=== PATIENT | female | born 1955 | race Two or more races ===

== ENCOUNTER 2016-06-24 17:59 | Emergency (ER) | payer SELFPAY ==
--- NOTE | 2016-06-24 18:09 | ER Document Report ---
ED Medical Screen (RME) - General Chief Complaint: Cough Stated Complaint: RESPIRATORY PROBLEM Time seen by provider: 18:07 Mode of Arrival: Ambulatory Information source: Patient Notes: 60 yo female presents to ed for cough and sore throat for 3 days. TRAVEL OUTSIDE OF THE [place] IN LAST 30 DAYS: No - HPI Onset: Other - 3 days Onset/Duration: Gradual Quality of pain: Other - sore throat Severity: Moderate Pain Level: 4 Associated Symptoms: Cough (nonproductive), Sinus pain/drainage, Sore throat Exacerbated by: Coughing Relieved by: Denies Similar symptoms previously: Yes Recently seen / treated by doctor: No - Related Data Smoking: Non-smoker, Quit greater than 1 year Frequency of alcohol use: Social Drug Abuse: None Allergies/Adverse Reactions: ibuprofen [Ibuprofen] Allergy (Verified 06/04/11 14:30) Past Medical History - Past Medical History Cardiac Medical History: Reports: Hx Hypertension Pulmonary Medical History: Reports: Hx Asthma - Immunizations Hx Diphtheria, Pertussis, Tetanus Vaccination: Yes
--- NOTE | 2016-06-24 19:35 | ER Document Report ---
ED General - General Chief Complaint: Cough Stated Complaint: RESPIRATORY PROBLEM Mode of Arrival: Ambulatory Notes: Patient is a 60-year-old female without significant past medical history who presents with 3 days of cough, sore throat, sinus pressure, and generalized malaise. Multiple sick contacts with similar symptoms. She does describe a constant, dull, scratchy pain to her throat. States she's had similar symptoms in the past with upper respiratory viral infections. She has been trying Mucinex at home with minimal relief of her symptoms. She has not noted anything worsens or symptoms. She has not seen her primary care physician regarding today's concerns. Denies any associated hemoptysis, shortness of breath, neck pain, headache, or altered mental status. TRAVEL OUTSIDE OF THE [place] IN LAST 30 DAYS: No - Related Data Allergies/Adverse Reactions: ibuprofen [Ibuprofen] Allergy (Verified 06/24/16 18:07) Past Medical History - General Information source: Patient - Social History Smoking Status: Never Smoker Chew tobacco use (# tins/day): No Frequency of alcohol use: Social Drug Abuse: None Lives with: Spouse/Significant other Family History: Reviewed & Not Pertinent Patient has suicidal ideation: No - Past Medical History Cardiac Medical History: Reports: Hx Hypertension Pulmonary Medical History: Reports: Hx Asthma Surgical Hx: Negative - Immunizations Hx Diphtheria, Pertussis, Tetanus Vaccination: Yes Review of Systems - Review of Systems Notes: Constitutional: Negative for fever. HENT: Positive for sore throat. Eyes: Negative for visual changes. Cardiovascular: Negative for chest pain. Respiratory: Negative for shortness of breath. Positive for cough Gastrointestinal: Negative for abdominal pain, vomiting or diarrhea. Genitourinary: Negative for dysuria. Musculoskeletal: Negative for back pain. Skin: Negative for rash. Neurological: Negative for headaches, weakness or numbness. 10 point ROS negative except as marked above and in HPI. Physical Exam - Vital signs Vitals: Resp 18 06/24/16 19:19 Interpretation: Normal Notes: PHYSICAL EXAMINATION: GENERAL: Well-appearing, well-nourished and in no acute distress. HEAD: Atraumatic, normocephalic. EYES: Pupils equal round and reactive to light, extraocular movements intact, sclera anicteric, conjunctiva are normal. ENT: nares patent, oropharynx clear without exudates. Moist mucous membranes. NECK: Normal range of motion, supple without lymphadenopathy LUNGS: Breath sounds clear to auscultation bilaterally and equal. No wheezes rales or rhonchi. HEART: Regular rate and rhythm without murmurs ABDOMEN: Soft, nontender, normoactive bowel sounds. No guarding, no rebound. No masses appreciated. EXTREMITIES: Normal range of motion, no pitting or edema. No cyanosis. NEUROLOGICAL: No focal neurological deficits. Moves all extremities spontaneously and on command. PSYCH: Normal mood, normal affect. SKIN: Warm, Dry, normal turgor, no rashes or lesions noted. Course - Re-evaluation Re-evalutation: 06/25/16 01:08 Presentation is most consistent with a viral upper respiratory infection. Patient is overall well appearance, vitals within normal limits, well-hydrated. Patient denies any headache, neck pain, and has no evidence of meningismus on examination. Lungs are clear bilaterally. No evidence of respiratory distress. Based on clinical exam and history, I do not suspect an acute pneumonia, meningitis, strep pharyngitis, or an acute encephalitis. Chest x- ray obtained in triage does not show any acute pneumonia. No futher laboratory or imaging testing is indicated at this time. At this time will discharge with return precautions and follow-up recommendations. Verbal discharge instructions given a the bedside and opportunity for questions given. Medication warnings reviewed. Patient is in agreement with this plan and has verbalized understanding of return precautions and the need for primary care follow-up in the next 24-72 hours. - Vital Signs Vital signs: Temp Pulse Resp BP Pulse Ox 98.1 F 91 18 159/59 H 98 06/24/16 20:06 06/24/16 20:06 06/24/16 19:19 06/24/16 20:06 06/24/16 20:06 - Diagnostic Test Radiology reviewed: Image reviewed, Reports reviewed Radiology results interpreted by me: 06/25/16 01:09 Chest x-ray: No pneumothorax, or acute infiltrate Discharge - Discharge Clinical Impression: Upper respiratory infection Qualifiers: URI type: unspecified URI Qualified Code(s): J06.9 - Acute upper respiratory infection, unspecified Condition: Good Disposition: HOME, SELF-CARE Additional Instructions: Your symptoms are most likely due to a viral infection it should resolve over the next 7-14 days. You should take [id number] guanfacine per bottle instructions to help thin the mucus. For nasal congestion: I would recommend that you get [id number] oxymetazoline also known is afrin. Use only per bottle instructions and be sure to never use this for more than 3 days if you can develop severe rebound congestion. You may also use tylenol or ibuprofen as needed for aches and thorat discomfort. Please be sure to drink plenty of fluids and get rest. Return to the emergency department he began having difficulty breathing, chest pain, persistent vomiting, or any other symptoms that are concerning to you.
[2016-06-24 20:07] VITALS: BP 159/59
== END 2016-06-24 20:10 | disposition home or self-care (01) ==
LOC: ER 17:59
DX: J06.9 Acute upper respiratory infection, unspecified (principal); J45.909 Unspecified asthma, uncomplicated; R05 Cough; J02.9 Acute pharyngitis, unspecified; J34.89 Other specified disorders of nose and nasal sinuses; R53.81 Other malaise; I10 Essential (primary) hypertension; Z88.6 Allergy status to analgesic agent
CPT/HCPCS: 71020; 99283

== ENCOUNTER 2017-07-20 16:39 | Inpatient (IN) | payer SELFPAY ==
--- NOTE | 2017-07-20 17:18 | RADIOLOGY REPORT (SQ) ---
EXAM DESCRIPTION: CHEST SINGLE VIEW COMPLETED DATE/TIME: 07/20/2017 5:09 pm REASON FOR STUDY: bed 4 cp COMPARISON: 06/24/2016. EXAM PARAMETERS: NUMBER OF VIEWS: One view. TECHNIQUE: Single frontal radiographic view of the chest acquired. RADIATION DOSE: NA LIMITATIONS: None. FINDINGS: LUNGS AND PLEURA: No opacities, masses or pneumothorax. No pleural effusion. MEDIASTINUM AND HILAR STRUCTURES: No masses. Contour normal. HEART AND VASCULAR STRUCTURES: Heart normal in size. Normal vasculature. BONES: Dorsal spondylosis noted. HARDWARE: None in the chest. OTHER: No other significant finding. IMPRESSION: NO ACUTE DISEASE. TECHNICAL DOCUMENTATION: JOB ID: [id number] SC-69 2010 [employer]- All Rights Reserved
[2017-07-20 18:42] LABS: ABSOLUTE BASOPHILS # (AUTO) 0.1 10^3/uL (0.0-0.2); ABSOLUTE EOSINOPHILS # (AUTO) 0.3 10^3/uL (0.0-0.6); ABSOLUTE LYMPHOCYTES (AUTO) 2.9 10^3/uL (0.5-4.7); ABSOLUTE MONOCYTES (AUTO) 0.5 10^3/uL (0.1-1.4); ABSOLUTE NEUT (AUTO) 8.9 10^3/uL (1.7-8.2); BASOPHILS % (AUTO) 0.5 % (0-2); EOSINOPHILS % (AUTO) 2.1 % (0-6); HEMOGLOBIN 14.5 g/dL (12.0-15.5); LYMPHOCYTES % (AUTO) 22.7 % (13-45); MEAN CORPUSCULAR HEMOGLOBIN 30.4 pg (27.0-33.4); MEAN CORPUSCULAR HGB CONC 33.6 g/dL (32.0-36.0); MEAN CORPUSCULAR VOLUME 90 fl (80-97); MONOCYTES % (AUTO) 4.3 % (3-13); PLATELET COUNT 420 10^3/uL (150-450); RED BLOOD COUNT 4.76 10^6/uL (3.72-5.28); RED CELL DISTRIBUTION WIDTH 14.6 % (11.5-14.0); SEGMENTED NEUTROPHILS % (AUTO) 70.4 % (42-78); TOTAL CELLS COUNTED % (AUTO) 100 %; WHITE BLOOD COUNT 12.6 10^3/uL (4.0-10.5)
--- NOTE | 2017-07-20 18:48 | ER Document Report ---
ED General - General Chief Complaint: High Blood Pressure Stated Complaint: CHEST PAIN Time Seen by Provider: 07/20/17 18:23 Notes: Patient is here complaining of some pressure in her chest and her heart racing and feeling dizzy and lightheaded. She said that she had the flu last week with some respiratory symptoms. She was seen , 1 week ago, and had a positive flu test at a local urgent care. She was put on Tamiflu and some prednisone for her breathing. She did not like the effects of the prednisone and thinks it was causing her heart to race so she only took it for about 2-1/2 days with her last dose being Monday. She describes this pressure as worse with activity or movement and better if she lays down and relaxes. She has had some nausea but not vomiting. Still has some cough, but no significant congestion or runny nose. Has not had any fever. Had a light headache. Patient has a history of hypertension and hypothyroid. She was on medications for both of these conditions, but has not had any for years because she cannot afford to go to the doctor to get prescriptions. Has never been told she has any heart trouble. On EMS, patient was noted to have a blood pressure of 208/110. She was given aspirin, nitroglycerin sublingual twice. She told EMS that her symptoms been going on for the past week and that she was under a lot of stress. When the patient arrived in the emergency department, she had a blood pressure 160/100. Remaining vital signs were all normal. TRAVEL OUTSIDE OF THE [place] IN LAST 30 DAYS: No - Related Data Allergies/Adverse Reactions: ibuprofen [Ibuprofen] Allergy (Verified 06/24/16 18:07) Past Medical History - Social History Smoking Status: Unknown if Ever Smoked Cigarette use (# per day): No Family History: Reviewed & Not Pertinent Patient has suicidal ideation: No Patient has homicidal ideation: No - Past Medical History Cardiac Medical History: Reports: Hx Hypertension Pulmonary Medical History: Reports: Hx Asthma Endocrine Medical History: Reports: Hx Hypothyroidism. Denies: Hx Diabetes Mellitus Type 1, Hx Diabetes Mellitus Type 2 - Immunizations Hx Diphtheria, Pertussis, Tetanus Vaccination: Yes Review of Systems - Review of Systems Notes: REVIEW OF SYSTEMS: CONSTITUTIONAL : Denies fever. EENT: Denies eye, ear, nose or mouth or throat pain or other symptoms. CARDIOVASCULAR: See HPI. RESPIRATORY: Does have some cough with minimal phlegm production. GASTROINTESTINAL: Denies abdominal pain vomiting, or diarrhea. Has some nausea. GENITOURINARY: Denies difficulty or painful urinating, urinary frequency, blood in urine. MUSCULOSKELETAL: Denies back or neck pain. Denies joint pain or swelling. SKIN: Denies rash or skin lesions. NEUROLOGICAL: Denies LOC or altered mental status. Denies headache. Denies sensory loss or motor deficits. ALL OTHER SYSTEMS REVIEWED AND NEGATIVE. Physical Exam - Vital signs Vitals: BP 164/83 H 07/20/17 17:01 Interpretation: Normal, Hypertensive - Mild - Notes Notes: PHYSICAL EXAMINATION: GENERAL: Well-appearing, in no acute distress. Anxious. HEAD: Atraumatic, normocephalic. EYES: Pupils equal round and reactive to light, extraocular movements intact. ENT: oropharynx clear without exudates. Moist mucous membranes. NECK: Normal range of motion, supple. LUNGS: Breath sounds clear and equal bilaterally. HEART: Regular rate and rhythm without murmurs. No chest wall tenderness to press. ABDOMEN: Soft, nontender. No guarding or rebound. No masses. BACK: No tenderness throughout entire back. EXTREMITIES: Normal range of motion without pain. Negative Homans bilaterally. NEUROLOGICAL: Normal speech, normal gait. Normal sensory, motor, and reflex exams. Awake, alert, and oriented x3. Cranial nerves normal. PSYCH: Anxious. SKIN: Warm, dry, no rashes. Course - Re-evaluation Re-evalutation: 07/20/17 18:47 Blood pressure 140/82. Patient seems to be doing much better. Says she occasionally has a pressure in the chest if she tries to move, but no symptoms if she sits still and relaxes. 07/20/17 20:00 Patient's laboratory workup came back essentially normal except for a slight elevation in her white cell count with the exception of a very high total CPK of over 105,000. I contacted the hospitalist for the patient to be admitted for hydration and further evaluation. - Vital Signs Vital signs: Temp Pulse Resp BP Pulse Ox 14 148/77 H 95 07/20/17 19:01 07/20/17 19:01 07/20/17 19:01 - Laboratory Result Diagrams: 07/20/17 18:32 07/20/17 18:32 Laboratory results interpreted by me: 07/20/17 07/20/17 18:32 18:32 WBC 12.6 H RDW 14.6 H Absolute Neutrophils 8.9 H BUN 21 H Glucose 114 H AST 370 H ALT 169 H Creatine Kinase 468032 H - Diagnostic Test Radiology results interpreted by me: 07/20/17 19:00 Chest x-ray is normal. - EKG Interpretation by Ar EKG shows normal: Sinus rhythm Rate: Normal Rhythm: NSR Additional EKG results interpreted by me: 07/20/17 19:01 EKG is completely normal. Sinus rhythm at 89/min. Discharge - Discharge Clinical Impression: Hypertension, Chest pressure, Elevated CPK Condition: Stable Disposition: ADMITTED INPATIENT Admitting Provider: Hospitalist Unit Admitted: Telemetry
--- NOTE | 2017-07-20 18:54 | EKG REPORT ---
SEVERITY:- NORMAL ECG - SINUS RHYTHM : Confirmed by: Arnav Darby MD 20-Jul-2017 18:54:06
[2017-07-20 18:59] LABS: ALANINE AMINOTRANSFERASE 169 U/L (9-52); ALBUMIN 3.7 g/dL (3.5-5.0); ALKALINE PHOSPHATASE 103 U/L (38-126); ANION GAP 5 (5-19); ASPARTATE AMINO TRANSFERASE 370 U/L (14-36); BILIRUBIN,DIRECT 0.3 mg/dL (0.0-0.4); BILIRUBIN,TOTAL 0.3 mg/dL (0.2-1.3); BLOOD UREA NITROGEN 21 mg/dL (7-20); CALCIUM 9.3 mg/dL (8.4-10.2); CARBON DIOXIDE 28 mmol/L (22-30); CHLORIDE 104 mmol/L (98-107); GLUCOSE 114 mg/dL (75-110); POTASSIUM 4.8 mmol/L (3.6-5.0); SODIUM 137.2 mmol/L (137-145)
[2017-07-20 19:11] LABS: CREATINE KINASE MB 3.68 ng/mL (<4.55)
[2017-07-20 19:12] LABS: TROPONIN I < 0.012 ng/mL
[2017-07-20 19:43] LABS: CREATINE KINASE 105534 U/L (30-135)
[2017-07-20] MEDS ORDERED: MAG HYDROX/AL HYDROX/SIMETH SUSP 30 ML UDCUP PO PRN (19:59)
[2017-07-20] MEDS ORDERED: ACETAMINOPHEN 325 MG TABLET PO PRN (19:59)
[2017-07-20] MEDS ORDERED: IPRATROPIUM/ALBUTEROL 0.5-2.5 MG/3 ML AMPUL NEB PRN (19:59)
[2017-07-20] MEDS ORDERED: HYDRALAZINE HCL INJ/PF 20 MG/1 ML SDV IV PRN (20:02)
[2017-07-20 20:29] LABS: MAGNESIUM 2.2 mg/dL (1.6-2.3); PHOSPHORUS 3.7 mg/dL (2.5-4.5)
[2017-07-20 20:47] LABS: FREE T4 (FREE THYROXINE) 1.1 ng/dL (0.78-2.19)
[2017-07-20 21:01] LABS: THYROID STIMULATING HORMONE 4.94 uIU/mL (0.47-4.68)
[2017-07-20] MEDS: NORMAL SALINE 1000 ML 1,000 ML IV SCH (21:18)
[2017-07-20] MEDS: HEPARIN SOD (PORCINE) 5,000 UNIT/ML 1 ML SYRINGE SUBCUT SCH (21:38)
[2017-07-20 21:47] LABS: URINE AMPHETAMINES SCREEN NEGATIVE; URINE BARBITURATES SCREEN NEGATIVE; URINE BENZODIAZEPINES SCREEN NEGATIVE; URINE COCAINE SCREEN NEGATIVE; URINE MARIJUANA (THC) SCREEN NEGATIVE; URINE METHADONE SCREEN NEGATIVE; URINE PHENCYCLIDINE SCREEN NEGATIVE
[2017-07-21] MEDS: NORMAL SALINE 1000 ML 1,000 ML IV SCH ×2 (01:15→05:56)
[2017-07-21] MEDS: HEPARIN SOD (PORCINE) 5,000 UNIT/ML 1 ML SYRINGE SUBCUT SCH ×3 (05:55→21:19)
[2017-07-21 07:22] LABS: ABSOLUTE EOSINOPHILS # (AUTO) 0.2 10^3/uL (0.0-0.6); ABSOLUTE LYMPHOCYTES (AUTO) 2.8 10^3/uL (0.5-4.7); ABSOLUTE MONOCYTES (AUTO) 0.5 10^3/uL (0.1-1.4); ABSOLUTE NEUT (AUTO) 4.3 10^3/uL (1.7-8.2); BASOPHILS % (AUTO) 0.6 % (0-2); EOSINOPHILS % (AUTO) 3.2 % (0-6); HEMATOCRIT 38.5 % (36.0-47.0); HEMOGLOBIN 12.8 g/dL (12.0-15.5); LYMPHOCYTES % (AUTO) 35.4 % (13-45); MEAN CORPUSCULAR HEMOGLOBIN 30.3 pg (27.0-33.4); MEAN CORPUSCULAR HGB CONC 33.3 g/dL (32.0-36.0); MEAN CORPUSCULAR VOLUME 91 fl (80-97); MONOCYTES % (AUTO) 5.8 % (3-13); PLATELET COUNT 333 10^3/uL (150-450); RED BLOOD COUNT 4.23 10^6/uL (3.72-5.28); RED CELL DISTRIBUTION WIDTH 14.4 % (11.5-14.0); TOTAL CELLS COUNTED % (AUTO) 100 %; WHITE BLOOD COUNT 7.9 10^3/uL (4.0-10.5)
[2017-07-21 07:38] LABS: ANION GAP 6 (5-19); BLOOD UREA NITROGEN 17 mg/dL (7-20); CALCIUM 8.1 mg/dL (8.4-10.2); CARBON DIOXIDE 29 mmol/L (22-30); CHLORIDE 104 mmol/L (98-107); GLUCOSE 101 mg/dL (75-110); SODIUM 139.1 mmol/L (137-145)
[2017-07-21 08:36] LABS: CREATINE KINASE 78187 U/L (30-135)
[2017-07-21] MEDS: DOCUSATE SODIUM 100 MG CAPSULE PO SCH ×2 (10:30→18:17)
[2017-07-21 15:49] LABS: ALANINE AMINOTRANSFERASE 142 U/L (9-52); ALBUMIN 3.4 g/dL (3.5-5.0); ALKALINE PHOSPHATASE 82 U/L (38-126); ASPARTATE AMINO TRANSFERASE 321 U/L (14-36); BILIRUBIN,DIRECT 0.1 mg/dL (0.0-0.4); BILIRUBIN,TOTAL 0.2 mg/dL (0.2-1.3); BLOOD UREA NITROGEN 16 mg/dL (7-20); CALCIUM 8.7 mg/dL (8.4-10.2); GLUCOSE 97 mg/dL (75-110); TOTAL PROTEIN 6.7 g/dL (6.3-8.2)
[2017-07-21 16:03] LABS: CARBON DIOXIDE 31 mmol/L (22-30); CHLORIDE 101 mmol/L (98-107); SODIUM 136.9 mmol/L (137-145)
[2017-07-21 16:07] LABS: ANION GAP 4 (5-19)
--- NOTE | 2017-07-21 18:25 | PDOC PROGRESS REPORT ---
Subjective Progress Note for:: 07/21/17 Subjective:: Pt still feels weak but strength improving, no PC or SOB, her urine is less dark , no nausea or emesis, eating fine. No fever or chillls. Reason For Visit: HTN EMERG,RHABDOMYOLYSIS,HYPOTHYROID, elevated LFt Physical Exam Vital Signs: Temp Pulse Resp BP Pulse Ox 98.2 F 65 16 172/70 H 100 07/21/17 16:00 07/21/17 16:00 07/21/17 16:00 07/21/17 16:00 07/21/17 16:00 Intake & Output 07/20/17 07/21/17 07/22/17 06:59 06:59 06:59 Intake Total 1156 Output Total 1600 Balance -444 Weight 80.2 kg General appearance: PRESENT: no acute distress, cooperative. ABSENT: thin Head exam: PRESENT: atraumatic, normocephalic Eye exam: PRESENT: conjunctiva pink, EOMI. ABSENT: scleral icterus Ear exam: PRESENT: normal external ear exam. ABSENT: bleeding Mouth exam: PRESENT: moist, neck supple Respiratory exam: PRESENT: clear to auscultation rafa, unlabored. ABSENT: chest wall tenderness, prolonged expiratory phas, rales, rhonchi, tachypnea, wheezes Cardiovascular exam: PRESENT: RRR. ABSENT: systolic murmur Pulses: PRESENT: normal radial pulses GI/Abdominal exam: PRESENT: normal bowel sounds, soft. ABSENT: distended, guarding, rebound, tenderness Rectal exam: PRESENT: deferred Extremities exam: ABSENT: calf tenderness, pedal edema, tenderness Musculoskeletal exam: PRESENT: ambulatory Neurological exam: PRESENT: alert, awake, oriented to person, oriented to place , oriented to time, oriented to situation, CN II-XII grossly intact Psychiatric exam: PRESENT: appropriate affect. ABSENT: agitated, anxious Skin exam: PRESENT: dry, intact. ABSENT: abrasion, erythema Results Laboratory Results: 07/21/17 06:36 07/21/17 15:14 07/21/17 07/21/17 07/21/17 06:36 06:36 15:14 WBC 7.9 RBC 4.23 Hgb 12.8 Hct 38.5 MCV 91 MCH 30.3 MCHC 33.3 RDW 14.4 H Plt Count 333 Seg Neutrophils % 55.0 Lymphocytes % 35.4 Monocytes % 5.8 Eosinophils % 3.2 Basophils % 0.6 Absolute Neutrophils 4.3 Absolute Lymphocytes 2.8 Absolute Monocytes 0.5 Absolute Eosinophils 0.2 Absolute Basophils 0.0 Sodium 139.1 136.9 L Potassium 5.0 5.0 Chloride 104 101 Carbon Dioxide 29 31 H Anion Gap 6 4 L BUN 17 16 Creatinine 0.71 0.68 Est GFR ( Amer) > 60 > 60 Est GFR (Non-Af Amer) > 60 > 60 Glucose 101 97 Calcium 8.1 L 8.7 Total Bilirubin 0.2 AST 321 H ALT 142 H Alkaline Phosphatase 82 Total Protein 6.7 Albumin 3.4 L 07/21/17 06:36 Creatine Kinase 53391 H Impressions: Chest X-Ray 07/20/17 16:42 IMPRESSION: NO ACUTE DISEASE. Assessment & Plan - Diagnosis (1) Abnormal LFTs (liver function tests) Is this a current diagnosis for this admission?: Yes Plan: Possible medication effect vs fatty liver disease or related to acute problem. Is improving with fluids and time. Consider out pt work up for fatty liver disease due to weight. Rechk LFT in am. (2) Chest pressure Is this a current diagnosis for this admission?: Yes Plan: resolved. no evidence ACS, monitor. No CP on ambulation today. If repeat CP then eval for ACS. (3) Elevated CPK Is this a current diagnosis for this admission?: Yes Plan: Rhabdomyolysis improving, cont IV fluids tonight and rechk renal fxn and CK in the am. (4) Hypertension Is this a current diagnosis for this admission?: Yes Plan: do not yet know if essential HTN, BP improved but not normal, will start low dose amlodipine and reeval in the am. She has no PCP and will need referral for f-up. - Time Time Spent with patient: 25-34 minutes Anticipated discharge: Home Within: within 48 hours - Inpatient Certification Based on my medical assessment, after consideration of the patient's comorbidities, presenting symptoms, or acuity I expect that the services needed warrant INPATIENT care.: Yes I certify that my determination is in accordance with my understanding of Medicare's requirements for reasonable and necessary INPATIENT services [42 CFR 412.3e].: Yes Medical Necessity: Need Close Monitoring Due to Risk of Patient Decompensation, Need For IV Fluids
[2017-07-21] MEDS ORDERED: NORMAL SALINE 1000 ML 1,000 ML IV SCH (18:30)
[2017-07-21] MEDS ORDERED: AMLODIPINE BESYLATE 5 MG TABLET PO ONE (19:00)
[2017-07-21] MEDS: RINGERS SOLUTION,LACTATED 1,000 ML IV PRN (21:29)
[2017-07-22] MEDS: HEPARIN SOD (PORCINE) 5,000 UNIT/ML 1 ML SYRINGE SUBCUT SCH ×2 (05:13→13:01)
[2017-07-22] MEDS: RINGERS SOLUTION,LACTATED 1,000 ML IV PRN (06:27)
[2017-07-22] MEDS: AMLODIPINE BESYLATE 5 MG TABLET PO SCH (10:12)
[2017-07-22] MEDS: DOCUSATE SODIUM 100 MG CAPSULE PO SCH ×2 (10:13→17:02)
--- NOTE | 2017-07-22 15:04 | PDOC PROGRESS REPORT ---
Subjective Progress Note for:: 07/22/17 Subjective:: Feeling much better today. 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 States there is a strong family history of autoimmune disorders in the family, including her mother ( myositis and RA) and sisters (Lupus). Denies muscle pains. Has not been worked up for autoimmune d/o in past. States that she is no other new complaints today. at bedside. Reason For Visit: HTN EMERG,RHABDOMYOLYSIS,HYPOTHYROID Physical Exam Vital Signs: Temp Pulse Resp BP Pulse Ox 99.0 F 90 20 161/68 H 98 07/22/17 12:13 07/22/17 14:00 07/22/17 12:13 07/22/17 12:13 07/22/17 12:13 Intake & Output 07/21/17 07/22/17 07/23/17 06:59 06:59 06:59 Intake Total 1156 2053 Output Total 1600 Balance -444 2053 Weight 80.2 kg 81.3 kg General appearance: PRESENT: no acute distress, obese Head exam: PRESENT: atraumatic, normocephalic Mouth exam: PRESENT: moist Respiratory exam: PRESENT: unlabored Cardiovascular exam: PRESENT: RRR. ABSENT: systolic murmur GI/Abdominal exam: PRESENT: soft. ABSENT: distended, tenderness Neurological exam: PRESENT: alert, awake, CN II-XII grossly intact Results Laboratory Results: 07/21/17 06:36 07/21/17 15:14 07/21/17 15:14 Sodium 136.9 L Potassium 5.0 Chloride 101 Carbon Dioxide 31 H Anion Gap 4 L BUN 16 Creatinine 0.68 Est GFR ( Amer) > 60 Est GFR (Non-Af Amer) > 60 Glucose 97 Calcium 8.7 Total Bilirubin 0.2 AST 321 H ALT 142 H Alkaline Phosphatase 82 Total Protein 6.7 Albumin 3.4 L 07/21/17 07/22/17 06:36 07:24 Creatine Kinase 45413 H CK-MB (CK-2) 2.30 Impressions: Chest X-Ray 07/20/17 16:42 IMPRESSION: NO ACUTE DISEASE. Assessment & Plan - Diagnosis (1) Autoimmune disorder Is this a current diagnosis for this admission?: Yes Plan: Elevated CPK, history of intermittent muscle pains, and strong family history of autoimmune disorders including myositis, RA, and lupus - Will check KAILEY and RF as autoimmune screen - Continue to trend CPK and LFTs, will repeat this afternoon - Depending on results, advised that she should establish care with PCP and possibly compensation and benefits manager (2) Abnormal LFTs (liver function tests) Is this a current diagnosis for this admission?: Yes Plan: Per above. [facility] unconvincing presenting story. No home medications that are classically associated with increased LFTs. Denies heavy EtoH use however drinks EtOH daily -this should not be associated with this degree of LFT derangement - Will check Hepatitis C, KAILEY, RF - LFTs continue to downtrend, continue to trend (3) Elevated CPK Is this a current diagnosis for this admission?: Yes Plan: PEr above - Continue to trend - Will continue IVF in setting of possible rhabdo - Would be helpful if there was a baseline CPK value. Nothing in our records (4) Hypertension Is this a current diagnosis for this admission?: Yes - Time Time Spent with patient: 15-24 minutes Anticipated discharge: Home Within: within 24 hours
[2017-07-22 15:48] LABS: ALANINE AMINOTRANSFERASE 149 U/L (9-52); ALBUMIN 3.6 g/dL (3.5-5.0); ALKALINE PHOSPHATASE 90 U/L (38-126); ANION GAP 8 (5-19); ASPARTATE AMINO TRANSFERASE 395 U/L (14-36); BILIRUBIN,DIRECT 0.2 mg/dL (0.0-0.4); BILIRUBIN,TOTAL 0.2 mg/dL (0.2-1.3); BLOOD UREA NITROGEN 14 mg/dL (7-20); CALCIUM 9.3 mg/dL (8.4-10.2); CARBON DIOXIDE 30 mmol/L (22-30); CHLORIDE 100 mmol/L (98-107); GLUCOSE 136 mg/dL (75-110); POTASSIUM 4.7 mmol/L (3.6-5.0); SODIUM 137.6 mmol/L (137-145); TOTAL PROTEIN 6.9 g/dL (6.3-8.2)
[2017-07-23] MEDS: RINGERS SOLUTION,LACTATED 1,000 ML IV PRN (00:12)
[2017-07-23] MEDS: HEPARIN SOD (PORCINE) 5,000 UNIT/ML 1 ML SYRINGE SUBCUT SCH ×2 (00:13→06:11)
[2017-07-23 07:25] LABS: ALANINE AMINOTRANSFERASE 141 U/L (9-52); ALBUMIN 3.3 g/dL (3.5-5.0); ALKALINE PHOSPHATASE 75 U/L (38-126); ASPARTATE AMINO TRANSFERASE 280 U/L (14-36); BILIRUBIN,DIRECT 0.4 mg/dL (0.0-0.4); BILIRUBIN,TOTAL 0.4 mg/dL (0.2-1.3); TOTAL PROTEIN 5.9 g/dL (6.3-8.2)
[2017-07-23 08:18] VITALS: BP 146/66
[2017-07-23 08:37] LABS: CREATINE KINASE 67024 U/L (30-135)
[2017-07-23] MEDS: DOCUSATE SODIUM 100 MG CAPSULE PO SCH (09:27)
[2017-07-23] MEDS: AMLODIPINE BESYLATE 5 MG TABLET PO SCH (09:27)
--- NOTE | 2017-07-23 18:27 | PDOC DISCHARGE SUMMARY ---
General - Admit/Disc Date/PCP Admission Date/Primary Care Provider: 07/20/17 20:18 Discharge Date: 07/23/17 - Discharge Diagnosis (1) Autoimmune disorder Is this a current diagnosis for this admission?: Yes Summary: Elevated CPK, history of intermittent muscle pains, and strong family history of autoimmune disorders including myositis, RA, and lupus - KAILEY pending, RF negative as autoimmune screen - CPK and LFTs improving but remain elevated at discharge; unclear what is her baseline Outpatient plan - Should establish care with PCP and repeat labs - Referal given to follow up with applications programmer (Dr. Skyler Jeronimo) (2) Abnormal LFTs (liver function tests) Is this a current diagnosis for this admission?: Yes Summary: Per above. Less likely to be from [facility] giving unconvincing presenting story. No home medications that are classically associated with increased LFTs. Denies heavy EtoH use however drinks EtOH daily -this should not be associated with this degree of LFT derangement - Hepatitis C and KAILEY pending - Told to avoid EtOH and tylenol at home - Check LFTs as outpatient by PCP (3) Elevated CPK Is this a current diagnosis for this admission?: Yes (4) Hypertension Is this a current diagnosis for this admission?: Yes Summary: BP's elevated. Improved on Norvasc. Script given for 10mg daily. Common side effects reviewed - BP should be followed by PCP. - Additional Information Resuscitation Status: Full Code Discharge Diet: As Tolerated Discharge Activity: Activity As Tolerated Prescriptions: Amlodipine Besylate [Norvasc 5 mg Tablet] 10 mg PO DAILY #60 tablet Home Medications: Amlodipine Besylate [Norvasc 5 mg Tablet] 10 mg PO DAILY #60 tablet 07/23/17 History of Present Illness Patient complains of: weakness History of Present Illness: MARIELA HICKS is a 61 year old female with no PMH presented with weakness and muscle cramps after trying to help her mother after she fell earlier on day of admission. States that she dose not follow with a doctor and has not been evaluated in over 7 years. 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 Physical Exam Vital Signs: Temp Pulse Resp BP Pulse Ox 97.8 F 69 18 146/66 H 100 07/23/17 07:18 07/23/17 07:53 07/23/17 07:53 07/23/17 07:18 07/23/17 07:53 Intake & Output 07/22/17 07/23/17 07/24/17 06:59 06:59 06:59 Intake Total 2052 4508 Balance 2052 4508 Weight 81.3 kg 81.2 kg General appearance: PRESENT: no acute distress, obese Mouth exam: PRESENT: moist Respiratory exam: PRESENT: unlabored Cardiovascular exam: PRESENT: RRR. ABSENT: systolic murmur, tachycardia GI/Abdominal exam: PRESENT: soft. ABSENT: tenderness Extremities exam: PRESENT: other - No muscle pain on palpation Neurological exam: PRESENT: alert, awake, CN II-XII grossly intact Skin exam: PRESENT: dry, warm Results Laboratory Results: 07/21/17 06:36 07/22/17 14:45 07/23/17 07/23/17 06:36 06:36 Total Bilirubin 0.4 AST 280 H ALT 141 H Alkaline Phosphatase 75 Total Protein 5.9 L Albumin 3.3 L TSH 6.05 H 07/21/17 07/22/17 07/23/17 06:36 07:24 06:36 Creatine Kinase 82273 H 41565 H CK-MB (CK-2) 2.30 Impressions: Chest X-Ray 07/20/17 16:42 IMPRESSION: NO ACUTE DISEASE.
[2017-07-24 14:39] LABS: HEPATITIS C VIRUS AB <0.1 s/co ratio (0.0-0.9)
[2017-07-25 12:28] LABS: ANTINUCLEAR ANTIBODIES Negative (Negative)
== END 2017-07-23 12:25 | disposition home or self-care (01) | DRG 816 ==
LOC: ER 16:39 → EH 20:18 → 4N 22:52
PROVIDERS: ADMIT Internal Medicine; ATTEND Internal Medicine
DX: D89.89 Other specified disorders involving the immune mechanism, not elsewhere classified (principal); I10 Essential (primary) hypertension; E03.9 Hypothyroidism, unspecified; R74.8 Abnormal levels of other serum enzymes; R07.89 Other chest pain; R79.89 Other specified abnormal findings of blood chemistry; M62.81 Muscle weakness (generalized); Z91.81 History of falling; Z59.7 Insufficient social insurance and welfare support; Z83.2 Family history of diseases of the blood and blood-forming organs and certain disorders involving the immune mechanism; Z88.6 Allergy status to analgesic agent
CPT/HCPCS: 36415; 71045; 80048; 80053; 80076; 80307; 82550; 82553; 83735; 83880; 84100; 84439; 84443; 84484; 85025; 85652; 86038; 86430; 86803; 86804; 93005; 93010; 99285; J1644; J7030; J7120

== ENCOUNTER → 2017-09-28 | Outpatient (CLI) | payer OTHER ==
[2017-09-28 10:35] LABS: ALANINE AMINOTRANSFERASE 32 U/L (9-52); ALBUMIN 4.1 g/dL (3.5-5.0); ALKALINE PHOSPHATASE 101 U/L (38-126); ASPARTATE AMINO TRANSFERASE 23 U/L (14-36); BILIRUBIN,DIRECT 0.3 mg/dL (0.0-0.4); BILIRUBIN,TOTAL 0.3 mg/dL (0.2-1.3); TOTAL PROTEIN 7.9 g/dL (6.3-8.2)
== END ==
LOC: CCC 09:20
DX: R94.5 Abnormal results of liver function studies (principal)
CPT/HCPCS: 36415; 80076; 82105; 84443

== ENCOUNTER → 2017-10-05 | Outpatient (CLI) | payer OTHER | LOC: OD 12:50 | DX: R94.4 Abnormal results of kidney function studies (principal) | CPT/HCPCS: 36415; 82550 ==

== ENCOUNTER → 2018-08-16 | Outpatient (CLI) | payer OTHER ==
[2018-08-16 10:36] LABS: ABSOLUTE EOSINOPHILS # (AUTO) 0.2 10^3/uL (0.0-0.6); ABSOLUTE LYMPHOCYTES (AUTO) 1.4 10^3/uL (0.5-4.7); ABSOLUTE MONOCYTES (AUTO) 0.3 10^3/uL (0.1-1.4); ABSOLUTE NEUT (AUTO) 3.4 10^3/uL (1.7-8.2); BASOPHILS % (AUTO) 0.7 % (0-2); EOSINOPHILS % (AUTO) 3.6 % (0-6); HEMATOCRIT 39.5 % (36.0-47.0); HEMOGLOBIN 13.6 g/dL (12.0-15.5); LYMPHOCYTES % (AUTO) 26.2 % (13-45); MEAN CORPUSCULAR HEMOGLOBIN 31.2 pg (27.0-33.4); MEAN CORPUSCULAR HGB CONC 34.4 g/dL (32.0-36.0); MEAN CORPUSCULAR VOLUME 91 fl (80-97); MONOCYTES % (AUTO) 5.9 % (3-13); PLATELET COUNT 310 10^3/uL (150-450); RED BLOOD COUNT 4.36 10^6/uL (3.72-5.28); RED CELL DISTRIBUTION WIDTH 14.1 % (11.5-14.0); SEGMENTED NEUTROPHILS % (AUTO) 63.6 % (42-78); TOTAL CELLS COUNTED % (AUTO) 100 %; WHITE BLOOD COUNT 5.4 10^3/uL (4.0-10.5)
[2018-08-16 10:57] LABS: ALANINE AMINOTRANSFERASE 26 U/L (9-52); ALBUMIN 4.3 g/dL (3.5-5.0); ALKALINE PHOSPHATASE 101 U/L (38-126); ANION GAP 9 (5-19); ASPARTATE AMINO TRANSFERASE 26 U/L (14-36); BILIRUBIN,DIRECT 0.1 mg/dL (0.0-0.4); BILIRUBIN,TOTAL 0.3 mg/dL (0.2-1.3); BLOOD UREA NITROGEN 12 mg/dL (7-20); CALCIUM 9.4 mg/dL (8.4-10.2); CARBON DIOXIDE 29 mmol/L (22-30); CHLORIDE 105 mmol/L (98-107); CHOLESTEROL 164.41 mg/dL (0-200); GLUCOSE 98 mg/dL (75-110); POTASSIUM 4.7 mmol/L (3.6-5.0); TOTAL PROTEIN 7.9 g/dL (6.3-8.2); TRIGLYCERIDES 85 mg/dL (<150)
[2018-08-16 11:10] LABS: DIRECT LDL 89 mg/dL (<100)
== END ==
LOC: CCC 09:46
DX: I10 Essential (primary) hypertension (principal)
CPT/HCPCS: 36415; 80053; 80061; 83036; 84443; 85025

== ENCOUNTER → 2018-12-14 | Outpatient (CLI) | payer OTHER ==
--- NOTE | 2018-12-14 13:51 | RADIOLOGY REPORT (SQ) ---
EXAM DESCRIPTION: CT HEAD WITHOUT COMPLETED DATE/TIME: 12/14/2018 1:21 pm REASON FOR STUDY: SHORT TERM MEMORY LOSS COMPARISON: None. TECHNIQUE: Axial images acquired through the brain without intravenous contrast. Images reviewed wi th bone, brain and subdural windows. Additional sagittal and coronal reconstructions were generated. Images stored on PACS. All CT scanners at this facility use dose modulation, iterative reconstruction, and/or weight based d osing when appropriate to reduce radiation dose to as low as reasonably achievable (ALARA). [facility]: Dose Right [facility]: CareDose [facility]: Dose Right [facility]: Teradose 4D [facility]: Metaps RADIATION DOSE: CT Rad equipment meets quality standard of care and radiation dose reduction techniq ues were employed. CTDIvol: 48.6 mGy. DLP: 880 mGy-cm. mGy. LIMITATIONS: None. FINDINGS: VENTRICLES: Normal size and contour. CEREBRUM: No masses. No hemorrhage. No midline shift. No evidence for acute infarction. Normal gra y/white matter differentiation. No areas of low density in the white matter. CEREBELLUM: No masses. No hemorrhage. No alteration of density. No evidence for acute infarction. EXTRAAXIAL SPACES: No fluid collections. No masses. ORBITS AND GLOBE: No intra- or extraconal masses. Normal contour of globe without masses. CALVARIUM: No fracture. PARANASAL SINUSES: No fluid or mucosal thickening. SOFT TISSUES: No mass or hematoma. OTHER: No other significant finding. IMPRESSION: NORMAL BRAIN CT WITHOUT CONTRAST. EVIDENCE OF ACUTE STROKE: NO. COMMENT: Quality ID # [id number]: Final reports with documentation of one or more dose reduction techniques (e.g., Automated exposure control, adjustment of the mA and/or kV according to patient size, use of iterative reconstruction technique) TECHNICAL DOCUMENTATION: JOB ID: [id number] [employer]- All Rights Reserved Reading location - IP/workstation name: [email or web address]
== END ==
LOC: RAD 12:33
DX: R41.3 Other amnesia (principal)
CPT/HCPCS: 70450

== ENCOUNTER → 2018-12-18 | Outpatient (CLI) | payer SELFPAY ==
[2018-12-18 15:18] LABS: ABSOLUTE EOSINOPHILS # (AUTO) 0.2 10^3/uL (0.0-0.6); ABSOLUTE MONOCYTES (AUTO) 0.4 10^3/uL (0.1-1.4); ABSOLUTE NEUT (AUTO) 4.1 10^3/uL (1.7-8.2); BASOPHILS % (AUTO) 0.5 % (0-2); EOSINOPHILS % (AUTO) 2.6 % (0-6); HEMATOCRIT 35.9 % (36.0-47.0); HEMOGLOBIN 12.1 g/dL (12.0-15.5); LYMPHOCYTES % (AUTO) 29.5 % (13-45); MEAN CORPUSCULAR HEMOGLOBIN 30.5 pg (27.0-33.4); MEAN CORPUSCULAR HGB CONC 33.6 g/dL (32.0-36.0); MEAN CORPUSCULAR VOLUME 91 fl (80-97); MONOCYTES % (AUTO) 6.5 % (3-13); PLATELET COUNT 305 10^3/uL (150-450); RED BLOOD COUNT 3.95 10^6/uL (3.72-5.28); RED CELL DISTRIBUTION WIDTH 14.3 % (11.5-14.0); SEGMENTED NEUTROPHILS % (AUTO) 60.9 % (42-78); TOTAL CELLS COUNTED % (AUTO) 100 %; WHITE BLOOD COUNT 6.7 10^3/uL (4.0-10.5)
[2018-12-18 15:50] LABS: ALANINE AMINOTRANSFERASE 26 U/L (9-52); ALBUMIN 4.2 g/dL (3.5-5.0); ALKALINE PHOSPHATASE 85 U/L (38-126); ANION GAP 7 (5-19); ASPARTATE AMINO TRANSFERASE 24 U/L (14-36); BILIRUBIN,DIRECT 0.2 mg/dL (0.0-0.4); BILIRUBIN,TOTAL 0.3 mg/dL (0.2-1.3); BLOOD UREA NITROGEN 14 mg/dL (7-20); CARBON DIOXIDE 30 mmol/L (22-30); CHLORIDE 101 mmol/L (98-107); CHOLESTEROL 139.39 mg/dL (0-200); GLUCOSE 78 mg/dL (75-110); POTASSIUM 4.5 mmol/L (3.6-5.0); SODIUM 138.3 mmol/L (137-145); TOTAL PROTEIN 7.9 g/dL (6.3-8.2); TRIGLYCERIDES 65 mg/dL (<150)
[2018-12-18 16:00] LABS: DIRECT LDL 59 mg/dL (<100)
[2018-12-18 16:06] LABS: FREE T3 3.43 pg/mL (2.77-5.27); FREE T4 (FREE THYROXINE) 1.07 ng/dL (0.78-2.19)
[2018-12-18 16:20] LABS: THYROID STIMULATING HORMONE 4.41 uIU/mL (0.47-4.68)
[2018-12-18 16:55] LABS: FOLATE 9.48 ng/mL (>2.76)
== END ==
LOC: CCC 14:01
DX: I10 Essential (primary) hypertension (principal); E78.5 Hyperlipidemia, unspecified; R73.03 Prediabetes
CPT/HCPCS: 36415; 80053; 80061; 82607; 82746; 83036; 84439; 84443; 84481; 85025; 86592